=== PATIENT | female | born 1955 | race Caucasian/White ===

== ENCOUNTER 2019-07-14 10:59 | Day surgery (SDC) | payer OTHER ==
[2019-07-10 10:11] VITALS: BMI 23.2
[2019-07-14] MEDS ORDERED: PROPOFOL 20 ML ONE ×2 (13:22→14:04)
[2019-07-14] MEDS ORDERED: LIDOCAINE HCL/PF 2% SDV 5ML VIAL ONE (13:22)
[2019-07-14] MEDS ORDERED: ceFAZolin SODIUM 1 GM VIAL ONE (13:22)
[2019-07-14] MEDS ORDERED: SODIUM CHLORIDE 0.9% P/F 10 ML VIAL IJ ONE (13:22)
[2019-07-14] MEDS ORDERED: DEXAMETHASONE SOD PHOSPHATE 4 MG/1 ML VIAL ONE (13:22)
[2019-07-14] MEDS ORDERED: MIDAZOLAM HCL 2 MG/2 ML SINGLE DOSE VIAL ONE (14:05)
[2019-07-14] MEDS ORDERED: ceFAZolin SODIUM 1 GM VIAL IVPB ONE (14:34)
[2019-07-14] MEDS ORDERED: ONDANSETRON 4 MG/2 ML VIAL IVPUSH PRN (14:39)
[2019-07-14] MEDS ORDERED: LACTATED RINGERS SOLUTION 1,000 ML IV SCH (14:45)
[2019-07-14] MEDS ORDERED: ACETAMINOPHEN 325 MG TABLET (FP) PO PRN (15:14)
--- NOTE | 2019-07-14 15:22 | OP ---
Operative Note - Note: Operative Date: 07/14/19 Pre-Operative Diagnosis: lt. renal colick, hematuria Operation: cysto, lt. retro, lt. ureteroscopy and stone retrieval and placement of jj stent Post-Operative Diagnosis: Same as Pre-op Surgeon: Paige Piper Anesthesia: General Specimens Removed: urine, stones Estimated Blood Loss (mls): 0 Drains & Tubes with Location: 22cm 6f lt. jj stent Drains, Volume Out (mls): 0 Blood Volume Replaced (mls): 0 Operative Report Dictated: Yes
--- NOTE | 2019-07-14 15:52 | CONS ---
DATE OF CONSULTATION: DATE OF DICTATION: 07/14/2019 HISTORY: Patient is a 64-year-old female with history of recurrent nephrolithiasis. She has complained of left flank pain, and ultrasound of the kidneys revealed left nephrolithiasis with mild left hydronephrosis. Patient also has frequency, urgency, and microscopic hematoma. PAST MEDICAL HISTORY: She does have history of gout. She is also a diabetic. The patient is G3, P3. ALLERGIES: Denies any allergies. SOCIAL HISTORY: Denies ethanolism or tobacco. PHYSICAL EXAMINATION: General: Reveals a well-developed adult female no apparent distress. Chest: Clear. Heart: Regular. Abdomen: Soft. There is left CVA tenderness. Pelvic: Reveals a grade 2 cystocele with atrophic vaginitis and a positive Froilan test. Extremities: Reveal full range of motion with no clubbing, cyanosis, or edema. IMPRESSION: At present is left kidney stone, left renal colic, hematuria. PLAN: Cystoscopy, left retrograde pyelogram, left ureteroscopic laser lithotripsy with placement of a possible stent. This was explained to patient, and she agrees. Kalyn [id number]
--- NOTE | 2019-07-14 16:08 | OP ---
DATE OF OPERATION: 07/14/2019 PREOPERATIVE DIAGNOSES: Left renal colic. Left nephrolithiasis. POSTOPERATIVE DIAGNOSES: Left renal colic. Left nephrolithiasis. OPERATIVE PROCEDURES: Cystoscopy, left retrograde pyelogram, left ureteroscopy with retrieval of stone, and placement of a left JJ stent. ANESTHESIA: General. DESCRIPTION OF PROCEDURE: Under above-stated anesthesia, patient was prepped and draped in the usual sterile manner. She was placed in the dorsal lithotomy position. 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 There was a grade 2 trabeculation of the bladder. No lesions or calculi were seen. Ureteral orifices were within normal limits. A Flexi-Tip catheter was placed into the left ureteral orifice and 5 mL of contrast was injected. This revealed a mild fullness of the renal pelvis to the level of the upper ureter. A Glidewire was passed up the left renal unit. Cystoscope was removed. A semi-rigid ureteroscope was inserted. Ureteroscopy per standard way revealed a normal lower ureter. There were small stones in the upper ureter, measuring between 2 and 4 mm. Using a stone basket, the stones were retrieved atraumatically. The renal pelvis was clean. No stones or lesions were seen. The ureteroscope was then removed. The 22-cm, 6-Ugandan JJ stent was left in place. X-rays confirmed good position of the stent. The bladder was emptied. Scope was removed. The patient tolerated the procedure well. She returned to the recovery room in good condition. Kalyn [id number]
[2019-07-14] MEDS ORDERED: ACETAMINOPHEN INJECTION 100 ML IVPB ONE (16:56)
[2019-07-14] MEDS ORDERED: ACETAMINOPHEN 1000 MG/100 ML VIAL (NON FORMULARY) IVPB ONE ×2 (17:00→17:16)
[2019-07-14 17:56] VITALS: TEMP 97.3
[2019-07-14 18:43] VITALS: BP 148/92; PULSE 77
--- NOTE | 2019-07-16 08:24 | PATH ---
Surgical Pathology Report Patient Name: PEACE GREGORY [facility]. Rec. #: [id number] /Age/Gender: 1955 (Age: 64) / F Account: [id number] Location: [facility] Taken: 07/14/2019 Received: 07/15/2019 Reported: 07/16/2019 Physicians: Paige Piper M.D. Specimen(s) Received LEFT URETERAL STONES Clinical History Stones left ureter Final Diagnosis Ureteral stones, left, cystoscopy and stone removal: UreterOlithiasis. MAcroscopic diagnosis. Electronically Signed Peaec Worrell M.D. Gross Description Received in formalin labeled "left ureteral stones," are 2 john brown, irregular calculi averaging less than 0.1 cm in greatest dimension. The formalin is drained and the specimen is dried and sent for chemical analysis. /07/15/2019 saudi/07/15/2019
== END 2019-07-14 18:55 | disposition home or self-care (01) ==
LOC: JASU-SURG 10:59
PROVIDERS: ATTEND Urology
PROC: 0TC78ZZ Extirpation of Matter from Left Ureter, Via Natural or Artificial Opening Endoscopic (ICD-10-PCS; principal; 2019-07-14 13:00)
PROC: 0T778DZ Dilation of Left Ureter with Intraluminal Device, Via Natural or Artificial Opening Endoscopic (ICD-10-PCS; 2019-07-14 13:00)
DX: N20.0 Calculus of kidney (principal); N23 Unspecified renal colic; E11.9 Type 2 diabetes mellitus without complications; Z79.84 Long term (current) use of oral hypoglycemic drugs
CPT/HCPCS: 36415; 76000-TC-FY; 82360; 82962; 87086; 94760; J0131

== ENCOUNTER 2020-03-04 05:04 | Day surgery (SDC) | payer OTHER ==
[2020-03-03 14:15] VITALS: BMI 23.2
[2020-03-04] MEDS ORDERED: MIDAZOLAM HCL 2 MG/2 ML SINGLE DOSE VIAL ONE (14:23)
[2020-03-04] MEDS ORDERED: DEXAMETHASONE SOD PHOSPHATE 4 MG/1 ML VIAL ONE (14:23)
[2020-03-04] MEDS ORDERED: PROPOFOL 20 ML ONE (14:23)
[2020-03-04] MEDS ORDERED: LIDOCAINE HCL/PF 2% SDV 5ML VIAL ONE (14:23)
[2020-03-04] MEDS ORDERED: ceFAZolin SODIUM 1 GM VIAL ONE (15:11)
[2020-03-04] MEDS ORDERED: ceFAZolin SODIUM 1 GM VIAL IVPB ONE (15:12)
[2020-03-04] MEDS ORDERED: ACETAMINOPHEN 325 MG TABLET (FP) PO PRN (15:37)
--- NOTE | 2020-03-04 15:42 | OP ---
Operative Note - Note: Operative Date: 03/04/20 Pre-Operative Diagnosis: left hydro, left ureteral stone Operation: lull with lt. jj stent Findings: lt. hydro. lt. ureteral stone Post-Operative Diagnosis: Same as Pre-op Surgeon: Paige Piper Anesthesia: General Specimens Removed: urine, stones Estimated Blood Loss (mls): 0 Instrument used (Debridements only): 0 Drains & Tubes with Location: 24cm-6f lt. jj stent Drains, Volume Out (mls): 0 Blood Volume Replaced (mls): 0 Fluid Volume Replaced (mls): 0 Operative Report Dictated: Yes
[2020-03-04 18:38] VITALS: BP 161/77; PULSE 66; TEMP 97.3
--- NOTE | 2020-03-04 20:39 | CONS ---
DATE OF CONSULTATION: 03/04/2020 Patient is a 64-year-old female with left flank pain, colicky in nature, commences in the left flank and radiates to the left lower quadrant. She also has history of diabetes. The patient is G3, P3. An ultrasound of the kidneys revealed a left hydroureteronephrosis as well as a right non-obstructing, 5-mm stone. Patient's urinalysis is positive for blood. Abdomen is soft. There is left CVA tenderness. IMPRESSION AT PRESENT: Possible left lower ureteral stone. PLAN: Cystoscopy, left retrograde, possible stent, possible laser lithotripsy. This was explained to patient, and she agrees. Kalyn [id number]
--- NOTE | 2020-03-05 13:45 | OP ---
DATE OF OPERATION: 03/04/2020 PREOPERATIVE DIAGNOSIS: Left hydronephrosis, left renal colic. POSTOPERATIVE DIAGNOSIS: Left lower ureteral stone. OPERATIVE PROCEDURE: Cystourethroscopy, left retrograde pyelogram, left ureteroscopy with extraction of stone and placement of a left JJ stent. ANESTHESIA: General. DESCRIPTION OF PROCEDURE: Under above-stated anesthesia, patient is prepped and draped in the usual sterile manner. She is placed in the dorsal lithotomy position. External genitalia reveal a grade 2 cystorectocele. Cystoscopy was performed. Urine was collected for C&S. The bladder revealed squamous metaplasia of the trigone. There was a generalized hyperemia and a grade 1 trabeculation. Ureteral orifices were visualized to be within normal limits. Efflux of clear urine from the right. None was seen from the left. A Flexi-Tip catheter was placed in the left side, and a retrograde pyelogram was performed. This revealed a left hydroureteronephrosis to the upper portion of the lower ureter. A Glidewire was passed up the left renal unit. Ureteroscopy revealed a stone at that point in the ureter. Due to the size of this stone, a basket was inserted. The stone was removed atraumatically. A 24-cm 6-English JJ stent was left in place. X-rays confirmed good position of the stent. The bladder was emptied, the scope was removed. The patient tolerated the procedure well. She returned to the recovery room in good condition. DIPTI LAKE M.D. [id number]
--- NOTE | 2020-03-08 18:28 | PATH ---
Surgical Pathology Report Patient Name: NIRMAL GREGORY [facility]. Rec. #: [id number] /Age/Gender: 1955 (Age: 64) / F Account: [id number] [place] [facility] [place] [facility] Taken: 03/04/2020 Received: 03/07/2020 Reported: 03/08/2020 Physicians: Paige Piper M.D. Specimen(s) Received LEFT URETER STONE Clinical History Left hydronephrosis Final Diagnosis LEFT URETER STONE, REMOVAL: CONSISTENT WITH URETER CALCULI. SENT FOR CHEMICAL ANALYSIS. Electronically Signed Batsheva Gorman M.D. Gross Description Received in a container, labeled "left ureter stone" are 2 calculi measuring from 0.2cm in greatest dimension. Sent for chemical analysis. DYAN/03/08/2020 eddi/03/08/2020
[2020-03-23 15:26] LABS: CA OXALATE MONOHYDR. 10; CALCIUM CARBONATE 40; SIZE 2X4 mm
== END 2020-03-04 18:50 | disposition home or self-care (01) ==
LOC: JASU-SURG 05:04
PROVIDERS: ATTEND Urology
PROC: 0T778DZ Dilation of Left Ureter with Intraluminal Device, Via Natural or Artificial Opening Endoscopic (ICD-10-PCS; principal; 2020-03-04 12:00)
PROC: 0TC78ZZ Extirpation of Matter from Left Ureter, Via Natural or Artificial Opening Endoscopic (ICD-10-PCS; 2020-03-04 12:00)
PROC: BT1FYZZ Fluoroscopy of Left Kidney, Ureter and Bladder using Other Contrast (ICD-10-PCS; 2020-03-04 12:00)
DX: N13.2 Hydronephrosis with renal and ureteral calculous obstruction (principal); E11.9 Type 2 diabetes mellitus without complications; Z79.4 Long term (current) use of insulin
CPT/HCPCS: 36415; 76000-TC-FY; 82360; 82962; 87086; 88300-TC; 94760

== ENCOUNTER 2021-10-03 11:49 | Emergency (ER) | payer OTHER ==
[2021-10-03 11:59] VITALS: TEMP 97.6; BMI 22.8
[2021-10-03] MEDS ORDERED: SODIUM CHLORIDE 0.9% 1000 ML INFUS.BAG IV ONE (12:09)
[2021-10-03 13:35] LABS: BASO % 0.9 % (0-2.0); EOS % 3.3 % (0-4.5); HEMATOCRIT 35.9 % (32.4-45.2); HEMOGLOBIN 12.1 GM/dL (10.7-15.3); LYMPH % 30.8 % (8-40); MCH 27.8 pg (25.7-33.7); MCHC 33.7 g/dl (32.0-36.0); MEAN CELL VOLUME 82.3 fl (80-96); MEAN PLT VOLUME 9.1 fl (7.5-11.1); MONO % 5.7 % (3.8-10.2); NEUT % 59.3 % (42.8-82.8); PLATELET COUNT 364 10^3/uL (134-434); RBC 4.35 M/mm3 (3.60-5.2); RDW 12.8 % (11.6-15.6); WHITE BLOOD COUNT 6.7 K/mm3 (4.0-10.0)
[2021-10-03 13:38] LABS: PH,URINE >= 9.0 (5.0-8.0); URINE APPEARANCE CLEAR; URINE BILIRUBIN NEGATIVE (NEGATIVE); URINE COLOR YELLOW; URINE GLUCOSE (UA) NEGATIVE (NEGATIVE); URINE KETONE NEGATIVE (NEGATIVE); URINE LEUK ESTERASE NEGATIVE (NEGATIVE); URINE NITRITE NEGATIVE (NEGATIVE); URINE PROTEIN NEGATIVE (NEGATIVE); URINE UROBILINOGEN 0.2 mg/dL (0.2-1.0)
[2021-10-03 13:52] LABS: BLOOD UREA NITROGEN 15.2 mg/dL (7-18); CALCIUM 9.6 mg/dL (8.5-10.1)
[2021-10-03 13:55] LABS: CREATININE 0.8 mg/dL (0.55-1.3)
[2021-10-03 13:56] LABS: BILIRUBIN,TOTAL 0.5 mg/dL (0.2-1)
[2021-10-03 13:57] LABS: TOT PROT 8.2 g/dl (6.4-8.2)
[2021-10-03 15:07] VITALS: BP 160/79; PULSE 60
== END 2021-10-03 16:29 | disposition home or self-care (01) ==
LOC: JER 11:49
DX: R55 Syncope and collapse (principal); R07.9 Chest pain, unspecified; F41.0 Panic disorder [episodic paroxysmal anxiety]
CPT/HCPCS: 36415; 71045-TC-FY; 80053; 81003; 82962; 83690; 84484; 85025; 87086; 93005; 93010; 99285-25